=== PATIENT | female | born 1960 | race Caucasian/White ===

== ENCOUNTER → 2017-12-01 11:50 | Outpatient (CLI) | payer OTHER, SELFPAY ==
--- NOTE | 2017-12-01 | DI.MRI.S_ITS ---
PROCEDURE: MR HEAD/BRAIN WO/W CON INDICATIONS: MS TECHNIQUE: Noncontrast sagittal and axial FLAIR, axial and coronal T2 fast spin echo, axial VIBE, axial gradient echo, axial diffusion and ADC through the brain. After the administration of contrast, axial and coronal VIBE with fat saturation through the brain. COMPARISON: [facility], MR, MR THORACIC SPINE WO/W CON, 12/01/2017, 13:02. [facility], MR, MR CERVICAL SPINE WO/W CON, 12/01/2017, 12:38. No prior outside studies are available for review at the time of this dictation. FINDINGS: Image quality: Excellent. CSF spaces: Ventricles are normal in size and shape. Basal cisterns are patent. No extra-axial fluid collections. Brain: Several foci of abnormal T2-weighted hyperintensity can be seen within the periventricular and deep white matter and juxtacortical regions are also seen. There is involvement of the corpus callosum. A few of the periventricular lesions demonstrate a perpendicular orientation to the lateral ventricles. These lesions do not enhance. No definite involvement of the brainstem or the posterior fossa can be seen. No intracranial bleeds or mass effects. Braun-white matter interface appears intact. No abnormal intracranial enhancement. Diffusion weighted images show no acute ischemic insults. Brainstem appears normal. Normal intravascular flow voids are present. Skull and face: Calvarial marrow signal is normal. Orbits appear normal. Incidental note is made of hyperostosis frontalis. This is not considered to be pathologic in a woman of this age. Sinuses: Sinuses and mastoids are clear. IMPRESSION: White matter lesions are seen, which are consistent with the given history of multiple sclerosis. Dictated by: Connor Lopez M.D. on 12/01/2017 at 14:52 Approved by: Connor Lopez M.D. on 12/01/2017 at 14:57
--- NOTE | 2017-12-01 | DI.MRI.S_ITS ---
PROCEDURE: MR CERVICAL SPINE WO/W CON INDICATIONS: MS TECHNIQUE: Noncontrast sagittal T1 spin echo and T2 fast spin echo, sagittal STIR, sagittal PD fast spin echo, foraminal oblique sagittal T2 fast spin echo, axial gradient echo or T2 fast spin echo through the cervical spine. After the administration of contrast, sagittal and axial T1 spin echo with fat saturation through the cervical spine. COMPARISON: [facility], MR, MR THORACIC SPINE WO/W CON, 12/01/2017, 13:02. [facility], MR, MR HEAD/BRAIN WO/W CON, 12/01/2017, 11:56. FINDINGS: Image quality: Excellent. Alignment and curvature: There is normal bony alignment. Marrow: Marrow demonstrates normal overall signal. Spinal cord: Visualized spinal cord is normal in size. Centered at the C3 level, there is a focal white matter lesion seen involving the left lateral column, as on series 2 image 10 and on series 4 image 11. At the C6 level on the right, there is a more faintly seen lesion, as on series 4 image 21 and on series 2 image 7. These lesions do not enhance. No cerebellar tonsillar herniation. Paraspinous soft tissues: No paravertebral masses or suspicious enhancement. C2-C3: The disc height is well-preserved. Mild disc osteophyte complex is seen, which is eccentric to the right. Mild facet joint hypertrophy is seen. No significant neural foraminal narrowing is seen. Minimal to mild central canal narrowing is seen. C3-C4: The disc height is relatively well-preserved. A mild degree of generalized disc osteophyte complex is seen. Mild facet joint hypertrophy is seen. There is moderate right-sided and mild left-sided neural foraminal narrowing seen. [id number] central canal narrowing is seen. C4-C5: Mild loss of disc height and disc signal are seen. Mild to moderate disc bulge is seen, which is eccentric to the right. Mild to moderate facet hypertrophy is seen. There is moderate right-sided and no significant left-sided neural foraminal narrowing seen. Moderate central canal narrowing is seen, with associated mass effect upon the ventral spinal cord. C5-C6: Mild loss of disc height is seen. Loss of disc signal is seen. Moderate generalized disc osteophyte complex is seen. Uncovertebral joint hypertrophy is seen at this level. Mild to moderate facet hypertrophy is seen. There is moderate right-sided and mild left-sided neural foraminal narrowing seen. Moderate central canal narrowing is seen, with mild mass effect upon the ventral spinal cord. C6-C7: Mild loss of disc height is seen. Loss of disc signal is seen. Mild to moderate disc osteophyte complex is seen. Mild facet joint hypertrophy is seen. There is mild right-sided and no significant left-sided neural foraminal narrowing seen. Mild central canal narrowing is seen. C7-T1: Normal appearance. IMPRESSION: 2 white matter lesions are seen, which are consistent with the given history of multiple sclerosis. These lesions do not enhance. Multiple levels of cervical spine degenerative change are seen, which are most prominent at the C4-C5 and the C5-C6 levels. Dictated by: Connor Lopez M.D. on 12/01/2017 at 14:57 Approved by: Connor Lopez M.D. on 12/01/2017 at 15:03
--- NOTE | 2017-12-01 | DI.MRI.S_ITS ---
PROCEDURE: MR THORACIC SPINE WO/W CON INDICATIONS: MS TECHNIQUE: Noncontrast sagittal T1 spin echo and T2 fast spin echo, sagittal STIR, axial T1 and T2 fast spin echo through the thoracic spine. After the administration of contrast, axial and sagittal T1 spin echo with fat saturation through the thoracic spine. COMPARISON: [facility], MR, MR CERVICAL SPINE WO/W CON, 12/01/2017, 12:38. [facility], MR, MR HEAD/BRAIN WO/W CON, 12/01/2017, 11:56. FINDINGS: Image quality: Excellent. Alignment and curvature: There is normal bony alignment. Marrow: Marrow is of normal overall signal. No acute vertebral body compression fractures. Scattered foci are seen, which are hyperintense on T1-weighted and T2-weighted imaging, which are most consistent with benign vertebral body hemangiomas. Spinal cord: Visualized spinal cord is of normal signal and size, without abnormal enhancement. Paraspinous soft tissues: No paravertebral masses or abnormal enhancement. Miscellaneous: Central canal and foramina appear widely patent at all scanned levels. IMPRESSION: No white matter lesions are seen to suggest multiple sclerosis. No abnormal enhancement can be seen. Dictated by: Connor Lopez M.D. on 12/01/2017 at 15:03 Approved by: Connor Lopez M.D. on 12/01/2017 at 15:04
== END ==
PROVIDERS: Visit Provider Psychiatry & Neurology Neurology
DX: G35 Multiple sclerosis (principal); M50.321 Other cervical disc degeneration at C4-C5 level
CPT/HCPCS: 70553; 72156; 72157; A9579